=== PATIENT | female | born 1980 | race Caucasian/White ===

== ENCOUNTER 2017-04-20 09:11 | Emergency (ER) | payer BC ==
[2017-04-20 11:09] VITALS: BP 115/50
--- NOTE | 2017-04-20 11:23 | UC ---
Back Pain HPI - HPI Summary HPI Summary: lower back pain x 3 days pulled her lower back as she was doing laundry pain is achy , no radiation of the pain , no lower ext weakness, no n/v, no dysuria - History of Current Complaint Chief Complaint: UCBackPain Stated Complaint: BACK PAIN Time Seen by Provider: 04/20/17 11:14 Hx Obtained From: Patient Hx Last Menstrual Period: 04/19/17 ?: No Onset/Duration: Sudden Onset, Lasting Days - 3, Still Present Timing: Constant Severity Initially: Moderate Severity Currently: Moderate Pain Intensity: 5 Back Pain: Is Discrete @ - lower back Character: Spasmodic Aggravating Factor(s): Movement, Lifting, Bending, Walking, Cough, Nothing Alleviating Factor(s): Rest Associated Signs And Symptoms: Negative: Swelling, Redness, Bruising, Fever, Weakness, Numbness, Tingling, Abdominal Pain, Flank Pain, Bladder Incontinence, Bowel Incontinence, Weight Loss, Pain with Weight Bearing - Allergies/Home Medications Allergies/Adverse Reactions: Allergies Allergy/AdvReac Type Severity Reaction Status Date / Time No Known Allergies Allergy Verified 04/20/17 11:09 PMH/Surg Hx/FS Hx/Imm Hx Previously Healthy: Yes - Surgical History Surgical History: None - Family History Known Family History: Positive: Unknown Negative: Diabetes - Social History Alcohol Use: Occasionally Substance Use Type: None Smoking Status (MU): Former Smoker When Did the Patient Quit Smoking/Using Tobacco: 6 years ago Review of Systems Constitutional: Negative Skin: Negative Eyes: Negative ENT: Negative Respiratory: Negative Cardiovascular: Negative Is Patient Immunocompromised?: No All Other Systems Reviewed And Are Negative: Yes Physical Exam Triage Information Reviewed: Yes Appearance: Well-Appearing, No Pain Distress, Well-Nourished Vital Signs: Initial Vital Signs Temp 98.5 F 04/20/17 11:05 Pulse 86 04/20/17 11:05 Resp 18 04/20/17 11:05 BP 115/50 04/20/17 11:05 Pulse Ox 100 04/20/17 11:05 Vital Signs Reviewed: Yes Eye Exam: Normal Eyes: Positive: Conjunctiva Clear ENT: Positive: Normal ENT inspection, Hearing grossly normal, Pharynx normal Neck: Positive: Supple, Nontender, No Lymphadenopathy Respiratory: Positive: Chest non-tender, Lungs clear, Normal breath sounds, No respiratory distress Cardiovascular: Positive: RRR, No Murmur, Pulses Normal Abdominal Exam: Normal Abdomen Description: Positive: Nontender, Soft Bowel Sounds: Positive: Present Musculoskeletal: Positive: Other: - lower back : no swelling, no erythema, no tenderness, pain with flexion and extension Back Pain Course/Dx - Differential Dx/Diagnosis Provider Diagnoses: lower back strain Discharge - Discharge Plan Condition: Stable Disposition: HOME Prescriptions: Cyclobenzaprine TAB* [Flexeril 10 MG TAB*] 10 mg PO BID PRN #20 tab PRN Reason: Pain Naproxen [Naproxen 500 mg] 500 mg PO BID #20 tablet Patient Education Materials: Low Back Strain (ED) Forms: *Work Release Referrals: No Primary Care Phys,NOPCP [Primary Care Provider] - If Needed
== END 2017-04-20 11:26 | disposition home or self-care (01) ==
LOC: UCCORT 09:11
DX: S39.012A Strain of muscle, fascia and tendon of lower back, initial encounter (principal); X50.9XXA Other and unspecified overexertion or strenuous movements or postures, initial encounter; Y93.E2 Activity, laundry; Y92.008 Other place in unspecified non-institutional (private) residence as the place of occurrence of the external cause; Z87.891 Personal history of nicotine dependence
CPT/HCPCS: 99212; G0463

== ENCOUNTER 2017-08-21 15:20 | Emergency (ER) | payer BC, MEDICAID ==
[2017-08-21 16:07] VITALS: BP 114/74
--- NOTE | 2017-08-21 16:45 | UC ---
Ear Complaint HPI - HPI Summary HPI Summary: 37 y/o female presents to the urgent care c/o B/L earwax buildup w/ decrease hearing since Wednesday08/18/2017. LF ear is worse johanna RT. Pt denies ear pain, dizziness, FRIED, fever, SOB, chest pain, abdominal pain, N/V/D - History of Current Complaint Chief Complaint: UCEar Stated Complaint: EAR WAX BUILD-UP Time Seen by Provider: 08/21/17 16:39 Hx Obtained From: Patient Hx Last Menstrual Period: [id number] Onset/Duration: Gradual Onset, Lasting Days - 4 days, Still Present Severity Initially: Moderate Severity Currently: Moderate Pain Intensity: 0 Pain Scale Used: 0-10 Numeric Aggravating Factors: Nothing Alleviating Factors: Nothing Associated Signs/Symptoms: Positive: Hearing Loss - Allergies/Home Medications Allergies/Adverse Reactions: Allergies Allergy/AdvReac Type Severity Reaction Status Date / Time No Known Allergies Allergy Verified 08/21/17 16:07 PMH/Surg Hx/FS Hx/Imm Hx Previously Healthy: Yes - Pt denies PMHX - Surgical History Surgical History: None - Family History Known Family History: Positive: Diabetes - Social History Occupation: Employed Full-time Lives: With Family Alcohol Use: Occasionally Substance Use Type: None Smoking Status (MU): Former Smoker When Did the Patient Quit Smoking/Using Tobacco: 6 years ago Review of Systems Constitutional: Negative Skin: Negative Eyes: Negative ENT: Ear Ache - B/L earwax build up w/ pressure, Other - decrease hearing Respiratory: Negative Cardiovascular: Negative Gastrointestinal: Negative Genitourinary: Negative Motor: Negative Neurovascular: Negative Musculoskeletal: Negative Neurological: Negative Psychological: Negative Is Patient Immunocompromised?: No All Other Systems Reviewed And Are Negative: Yes Physical Exam - Summary Physical Exam Summary: Vital signs: reviewed General: well developed, well nourished female sitting in the examining table w/ o any apparent distress Skin: Cutter, warm and dry, no evidence of atopic dermatitis, psoriasis, seborrhea. HEENT: -Head: atraumatic, non tender; no scalp dermatitis. -Eyes: sclera and conjunctiva clear, PERRLA, EOMI -Ears: no pre- or postauricular lymphadenopathy or erythema; B/L ear canl impacted w/ cerumen, unable to visualize TM's. -Nose/Face: erythematous and edematous nasal mucosa with clear rhinorrhea, no frontal or maxillary sinus tender to palpation. -Mouth/Throat: Mucous membrane moist, posterior pharynx clear, no erythema or exudates. Neck: supple, FROM, nontender, no lymphadenopathy, no meningismus. Chest: Clear to auscultation, normal breath sounds Abd: soft, Bowel sounds active, Nontender. Back: no spinal or CVAT Neuro: A&O x4, GCS 15, no focal neuro deficits, normal behavior for age. Triage Information Reviewed: Yes Vital Signs: Initial Vital Signs Temp 98.8 F 08/21/17 16:03 Pulse 82 08/21/17 16:03 Resp 16 08/21/17 16:03 BP 114/74 08/21/17 16:03 Pulse Ox 100 08/21/17 16:03 Ear Complaint Course/Dx - Course Course Of Treatment: 37 y/o female presents to the urgent care c/o B/L earwax buildup w/ decrease hearing since Wednesday08/18/2017. LF ear is worse johanna RT. Pt denies ear pain, dizziness, FRIED, fever, SOB, chest pain, abdominal pain, N/V/ D. Hx obtained. Pt w/ B/L ear impaction on examination. B/L ear irrigation ordered. Irrigation performed by Nurse. Pt tolerated well procedure w/o any adverse effect. Both exteranl ear canals completely clear, and TM WNL no signs of infection. Pt advised if not improvement of symptoms in 2-3 days to return to the clinic or f/u w/ her PCP for further treatment. Pt understood and agreed w/ plan of care. - Differential Dx/Diagnosis Differential Diagnosis/HQI/PQRI: Cerumen Impaction, Otitis Externa, Otitis Media , Perforated TM Provider Diagnoses: 1- B/L ear cerumen impaction Discharge - Sign-Out/Discharge Documenting (check all that apply): Discharge/Admit/Transfer - D/c home - Discharge Plan Condition: Stable Disposition: HOME Patient Education Materials: Cerumen Impaction (ED) Referrals: Meghann Padron MD [Primary Care Provider] - 3 Days Additional Instructions: 1- B/L ear canal completely clear. 2-If you develop ear pain or fever please f/u w/ PCP or return to the urgent care for further evaluation and treatment. - Billing Disposition and Condition Condition: STABLE Disposition: Home
== END 2017-08-21 17:24 | disposition home or self-care (01) ==
LOC: UCEAST 15:20
DX: H61.23 Impacted cerumen, bilateral (principal); Z87.891 Personal history of nicotine dependence; Z83.3 Family history of diabetes mellitus
CPT/HCPCS: 99213; G0463

== ENCOUNTER 2017-09-15 12:15 | Emergency (ER) | payer MEDICAID ==
[2017-09-15 12:33] VITALS: BP 118/61
[2017-09-15] MEDS ORDERED: Acetaminophen TAB* 325 MG PO ONE (12:36)
--- NOTE | 2017-09-15 12:44 | UC ---
Throat Pain/Nasal Frank HPI - HPI Summary HPI Summary: Pt c/o sudden onset fever, chills, body aches, ST sinus tenderness X 1 day. - History of Current Complaint Chief Complaint: UCGeneralIllness Stated Complaint: ST/WEAKNESS/FRIED/FEVER Hx Obtained From: Patient Hx Last Menstrual Period: 09/13/17 ?: No Onset/Duration: Sudden Onset, Still Present, Worse Since - onset Severity: Moderate Pain Intensity: 7 Cough: None Associated Signs & Symptoms: Positive: Dysphagia, Sinus Discomfort, Fever - Epiglottits Risk Factors Epiglottis Risk Factors: Sudden Onset - Allergies/Home Medications Allergies/Adverse Reactions: Allergies Allergy/AdvReac Type Severity Reaction Status Date / Time No Known Allergies Allergy Verified 09/15/17 12:28 Home Medications: Home Medications Acetaminophen [Acetaminophen Extra Strength] 1,000 mg PO Q6H PRN 09/15/17 [ History Confirmed 09/15/17] Ibuprofen TAB* [Advil TAB*] 600 mg PO Q6H PRN 09/15/17 [History Confirmed ] PMH/Surg Hx/FS Hx/Imm Hx Previously Healthy: Yes - Surgical History Surgical History: None - Family History Known Family History: Positive: Unknown, Diabetes - Social History Occupation: Employed Full-time Lives: With Family Alcohol Use: Rare Substance Use Type: None Smoking Status (MU): Former Smoker Have You Smoked in the Last Year: No When Did the Patient Quit Smoking/Using Tobacco: 6 years ago Review of Systems Constitutional: Fever, Chills, Fatigue Skin: Negative Eyes: Negative ENT: Sore Throat, Sinus Congestion, Sinus Pain/Tenderness Respiratory: Negative Cardiovascular: Negative Gastrointestinal: Nausea Genitourinary: Negative Motor: Negative Neurovascular: Negative Musculoskeletal: Myalgia Neurological: Headache Psychological: Negative Is Patient Immunocompromised?: No All Other Systems Reviewed And Are Negative: Yes Physical Exam Triage Information Reviewed: Yes Appearance: Ill-Appearing Vital Signs: Initial Vital Signs Temp 102.4 F 09/15/17 12:26 Pulse 120 09/15/17 12:26 Resp 18 09/15/17 12:26 BP 118/61 09/15/17 12:26 Pulse Ox 98 09/15/17 12:26 Vital Signs Reviewed: Yes Eye Exam: Normal ENT: Positive: Nasal congestion, Tonsillar swelling, Tonsillar exudate, Sinus tenderness Dental Exam: Normal Neck exam: Normal Respiratory Exam: Normal Cardiovascular Exam: Normal Musculoskeletal Exam: Normal Neurological Exam: Normal Psychological Exam: Normal Skin Exam: Normal Diagnostics - Laboratory Diagnostic Studies Completed/Ordered: elin rapid strep: positive Throat Pain/Nasal Course/Dx - Differential Dx/Diagnosis Differential Diagnosis/HQI/PQRI: Tonsillitis Provider Diagnoses: strep throat Discharge - Sign-Out/Discharge Documenting (check all that apply): Patient Departure - Discharge Plan Condition: Stable Disposition: HOME Prescriptions: Penicillin VK 500 MG TAB(NF) [Penicillin VK 500 mg Tab] 500 mg PO Q8H #30 tab Patient Education Materials: Strep Throat (DC) Forms: *Work Release Referrals: Meghann Padron MD [Primary Care Provider] - - Billing Disposition and Condition Condition: STABLE Disposition: Home
== END 2017-09-15 12:56 | disposition home or self-care (01) ==
LOC: UCCORT 12:15
DX: J02.0 Streptococcal pharyngitis (principal); Z87.891 Personal history of nicotine dependence
CPT/HCPCS: 87651; 99212; A9270-GY; G0463

== ENCOUNTER 2018-03-13 12:13 | Emergency (ER) | payer MEDICAID ==
[2018-03-13 12:26] VITALS: BP 123/75
--- NOTE | 2018-03-13 14:23 | UC ---
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[facility]-- - History of Current Complaint Chief Complaint: UCRash Time Seen by Provider: 03/13/18 14:01 Stated Complaint: SKIN COMPLAINT Hx Obtained From: Patient Hx Last Menstrual Period: 09/13/17 ?: Yes Onset/Duration: Sudden Onset, Lasting Days, Still Present Timing: Constant Pain Intensity: 0 Location: Discrete - right fore arm Character: Pruritus, Redness Aggravating Factor(s): Nothing Alleviating Factor(s): Nothing Associated Signs & Symptoms: Positive: Rash - Allergy/Home Medications Allergies/Adverse Reactions: Allergies Allergy/AdvReac Type Severity Reaction Status Date / Time No Known Allergies Allergy Verified 03/13/18 12:26 Home Medications: Home Medications NK [No Home Medications Reported] 03/13/18 [History Confirmed 03/13/18] PMH/Surg Hx/FS Hx/Imm Hx Previously Healthy: Yes - Surgical History Surgical History: None - Family History Known Family History: Positive: Unknown, Diabetes - Social History Occupation: Employed Full-time Lives: With Family Alcohol Use: None Substance Use Type: None Smoking Status (MU): Former Smoker Have You Smoked in the Last Year: No When Did the Patient Quit Smoking/Using Tobacco: 6 years ago Review of Systems All Other Systems Reviewed And Are Negative: Yes Constitutional: Positive: Negative Skin: Positive: Other - contact dermititis right forearm Eyes: Positive: Negative ENT: Positive: Negative Respiratory: Positive: Negative Cardiovascular: Positive: Negative Gastrointestinal: Positive: Negative Genitourinary: Positive: Negative Motor: Positive: Negative Neurovascular: Positive: Negative Musculoskeletal: Positive: Negative Neurological: Positive: Negative Psychological: Positive: Negative Is Patient Immunocompromised?: No Physical Exam Triage Information Reviewed: Yes Appearance: Well-Appearing, No Pain Distress, Well-Nourished Vital Signs: Initial Vital Signs Temp 98.5 F 03/13/18 12:22 Pulse 96 03/13/18 12:22 Resp 18 03/13/18 12:22 BP 123/75 03/13/18 12:22 Pulse Ox 100 03/13/18 12:22 Vital Signs Reviewed: Yes Eye Exam: Normal Eyes: Positive: Conjunctiva Clear ENT Exam: Normal ENT: Positive: Normal ENT inspection, Hearing grossly normal. Negative: Trismus , Muffled voice, Hoarse voice Dental Exam: Normal Neck exam: Normal Neck: Positive: Supple, Nontender Respiratory Exam: Normal Respiratory: Positive: Chest non-tender, No respiratory distress, No accessory muscle use Cardiovascular Exam: Normal Cardiovascular: Positive: RRR, Pulses Normal, Brisk Capillary Refill Musculoskeletal Exam: Normal Musculoskeletal: Positive: Strength Intact, ROM Intact, No Edema Neurological Exam: Normal Neurological: Positive: Alert, Muscle Tone Normal Psychological Exam: Normal Skin Exam: Other Skin: Positive: Other - dermititis right forearm- Course/Dx - Course Course Of Treatment: benadryl, cool compress (dry) keep skin dry use vaseline protectant---(hydrocortisone ic "C" in pregnacy-advised patient to discuss this treatment with pcp) - Diagnoses Provider Diagnosis: Acute contact dermatitis, Discharge - Sign-Out/Discharge Documenting (check all that apply): Patient Departure All imaging exams completed and their final reports reviewed: No Studies - Discharge Plan Condition: Stable Disposition: HOME Patient Education Materials: Diphenhydramine (By mouth), Contact Dermatitis (ED ), Cold Compress or Soak (ED) Referrals: Meghann Padron MD [Primary Care Provider] - 1 Week - Billing Disposition and Condition Condition: STABLE Disposition: Home
== END 2018-03-13 14:25 | disposition home or self-care (01) ==
LOC: UCEAST 12:13
DX: O99.719 Diseases of the skin and subcutaneous tissue complicating pregnancy, unspecified trimester (principal); L25.9 Unspecified contact dermatitis, unspecified cause; Z87.891 Personal history of nicotine dependence
CPT/HCPCS: 99211; G0463

== ENCOUNTER 2018-06-22 13:40 | Emergency (ER) | payer MEDICAID, OTHER ==
[2018-06-22 13:58] VITALS: BP 124/59
--- NOTE | 2018-06-22 14:10 | UC ---
General HPI - HPI Summary HPI Summary: Here with and daughter. Woke up this morning and could not hear out of either ears. Gets clogged ears all the time. States she uses qtips because she feels like she gets so much wax in there. No fever. No URI symptoms. Otherwise well. Meds: reviewed. - History of Current Complaint Chief Complaint: UCEar Stated Complaint: EAR PAIN Time Seen by Provider: 06/22/18 13:47 Hx Last Menstrual Period: 11/11/17 Pain Intensity: 0 - Allergy/Home Medications Allergies/Adverse Reactions: Allergies Allergy/AdvReac Type Severity Reaction Status Date / Time No Known Allergies Allergy Verified 03/13/18 12:26 PMH/Surg Hx/FS Hx/Imm Hx Previously Healthy: Yes - Surgical History Surgical History: None - Family History Known Family History: Positive: Unknown, Diabetes - Social History Alcohol Use: None Substance Use Type: None Smoking Status (MU): Former Smoker Have You Smoked in the Last Year: No When Did the Patient Quit Smoking/Using Tobacco: 6 years ago Review of Systems All Other Systems Reviewed And Are Negative: Yes ENT: Positive: Other - hearing loss Physical Exam Triage Information Reviewed: Yes Appearance: Well-Appearing Vital Signs: Initial Vital Signs Temp 98.8 F 06/22/18 13:49 Pulse 73 06/22/18 13:49 Resp 18 06/22/18 13:49 BP 124/59 06/22/18 13:49 Pulse Ox 99 06/22/18 13:49 Vital Signs Reviewed: Yes ENT: Positive: Other - b/l wax impaction -soft Neck: Positive: Supple Respiratory: Positive: Chest non-tender, Normal breath sounds Cardiovascular: Positive: RRR, No Murmur Course/Dx - Course Course Of Treatment: This is a 38 yr old with b/l wax impaction Unable to be removed with curette as it is too distal Ear lavage b/l - with success. Now can hear. No signs of infection Canal and TM ; Normal Plan Debrox kit to use as needed Discontinue using qtips Return to urgent care or your PCP if you develop any pain or you develop hearing loss again - Diagnoses Provider Diagnosis: Impacted ear wax Discharge - Sign-Out/Discharge Documenting (check all that apply): Patient Departure All imaging exams completed and their final reports reviewed: No Studies - Discharge Plan Condition: Good Disposition: HOME Prescriptions: Carbamide Peroxide 6.5% OTIC* [DEBROX 6.5% Otic*] 5 drop BOTH EARS BID #1 bottle Patient Education Materials: Cerumen Impaction (ED) Referrals: Meghann Padron MD [Primary Care Provider] - Additional Instructions: Debrox kit to use as needed Discontinue using qtips Return to urgent care or your PCP if you develop any pain or you develop hearing loss again - Billing Disposition and Condition Condition: GOOD Disposition: Home
== END 2018-06-22 14:35 | disposition home or self-care (01) ==
LOC: UCEAST 13:40
DX: H61.23 Impacted cerumen, bilateral (principal); F17.210 Nicotine dependence, cigarettes, uncomplicated
CPT/HCPCS: 99213; G0463

== ENCOUNTER 2018-11-08 15:47 | Emergency (ER) | payer OTHER ==
[2018-11-08 16:03] VITALS: BP 130/70
--- NOTE | 2018-11-08 16:10 | UC ---
General HPI - HPI Summary HPI Summary: R ear plugged today. hx same from wax buildup. no uri, fever or discharge from the ear. - History of Current Complaint Chief Complaint: UCEar Stated Complaint: RT EAR COMPLAINT Time Seen by Provider: 11/08/18 15:58 Hx Obtained From: Patient Hx Last Menstrual Period: 11/11/17 Pain Intensity: 4 Associated Signs & Symptoms: Negative: Headache - Allergy/Home Medications Allergies/Adverse Reactions: Allergies Allergy/AdvReac Type Severity Reaction Status Date / Time No Known Allergies Allergy Verified 11/08/18 16:03 PMH/Surg Hx/FS Hx/Imm Hx Previously Healthy: Yes - Surgical History Surgical History: None - Family History Known Family History: Positive: Unknown, Diabetes - Social History Lives: With Family Alcohol Use: None Substance Use Type: None Smoking Status (MU): Former Smoker Have You Smoked in the Last Year: No When Did the Patient Quit Smoking/Using Tobacco: 6 years ago Review of Systems All Other Systems Reviewed And Are Negative: No Constitutional: Negative: Fever, Chills Skin: Negative: Rash Eyes: Negative: Drainage, Eye Redness ENT: Negative: Sore Throat, Sinus Congestion Neurological: Negative: Headache Physical Exam Triage Information Reviewed: Yes Appearance: Well-Appearing Vital Signs: Initial Vital Signs Temp 98.7 F 11/08/18 15:59 Pulse 78 11/08/18 15:59 Resp 16 11/08/18 15:59 BP 130/70 11/08/18 15:59 Pulse Ox 100 11/08/18 15:59 Vital Signs Reviewed: Yes Eyes: Positive: Conjunctiva Clear ENT: Positive: Pharynx normal, TMs normal - L. R occluded by cerumen., Other - no mastoid tenderness or auricular adenoapthy.. Negative: Nasal congestion, Nasal drainage Neck: Positive: Supple, Nontender, No Lymphadenopathy Neurological: Positive: Alert Psychological: Positive: Normal Response To Family, Age Appropriate Behavior Skin Exam: Normal Re-Evaluation - Re-Evaluation First Eval Re-Evaluation Time: 16:18 Change: Improved - most of cerumen cleared. tiny amount. tm jovi. canal is red. no bleeding. pt declined additional flushing and pain medication. Course/Dx - Diagnoses Provider Diagnosis: Impacted cerumen of right ear, Otitis externa Discharge ED - Sign-Out/Discharge Documenting (check all that apply): Patient Departure All imaging exams completed and their final reports reviewed: No Studies - Discharge Plan Condition: Stable Disposition: HOME Prescriptions: Ciproflox/Dexameth OTIC.SUSP* [Ciprodex OTIC.SUSP*] 4 drop .SEE ORDER BID 7 Days #1 btl Patient Education Materials: Cerumen Impaction (ED), Otitis Externa (ED) Referrals: Babita Bennett MD [Primary Care Provider] - 7 Days - Billing Disposition and Condition Condition: STABLE Disposition: Home
== END 2018-11-08 16:40 | disposition home or self-care (01) ==
LOC: UCCORT 15:47
DX: H61.21 Impacted cerumen, right ear (principal); H60.91 Unspecified otitis externa, right ear; Z87.891 Personal history of nicotine dependence
CPT/HCPCS: 99212; G0463

== ENCOUNTER 2019-04-23 18:16 | Emergency (ER) | payer BC, OTHER ==
[2019-04-23 18:33] VITALS: BP 123/60
[2019-04-23] MEDS ORDERED: Amoxicillin PO (*) 500 MG CAP PO ONE ×2 (19:45→19:46)
--- NOTE | 2019-04-23 20:02 | UC ---
Ear Complaint HPI - HPI Summary HPI Summary: 1 MONTH OF BILATERAL EAR PAIN, FULLNESS AND DECREASED HEARING. STATES SHE HAS A HISTORY OF RECURRENT CERUMEN IMPACTION. - History of Current Complaint Chief Complaint: UCEar Stated Complaint: EAR PAIN Time Seen by Provider: 04/23/19 18:44 Hx Obtained From: Patient Hx Last Menstrual Period: Depo Onset/Duration: Gradual Onset, Lasting Weeks, Still Present Severity Initially: Moderate Severity Currently: Moderate Pain Intensity: 7 Pain Scale Used: 0-10 Numeric Aggravating Factors: Nothing Alleviating Factors: Nothing Associated Signs/Symptoms: Positive: Hearing Loss, Foreign Body Sensation. Negative: URI Symptoms - Allergies/Home Medications Allergies/Adverse Reactions: Allergies Allergy/AdvReac Type Severity Reaction Status Date / Time No Known Allergies Allergy Verified 04/23/19 18:34 PMH/Surg Hx/FS Hx/Imm Hx Previously Healthy: Yes - Surgical History Surgical History: None - Family History Known Family History: Positive: Unknown, Diabetes, Non-Contributory - Social History Alcohol Use: Occasionally Substance Use Type: None Smoking Status (MU): Former Smoker Have You Smoked in the Last Year: No When Did the Patient Quit Smoking/Using Tobacco: 6 years ago Review of Systems All Other Systems Reviewed And Are Negative: Yes Constitutional: Positive: Negative ENT: Positive: Ear Ache Respiratory: Positive: Negative Cardiovascular: Positive: Negative Gastrointestinal: Positive: Negative Physical Exam Triage Information Reviewed: Yes Appearance: Well-Appearing, No Pain Distress, Well-Nourished Vital Signs: Initial Vital Signs Temp 99.0 F 04/23/19 18:31 Pulse 92 04/23/19 18:31 Resp 12 04/23/19 18:31 BP 123/60 04/23/19 18:31 Pulse Ox 99 04/23/19 18:31 Vital Signs Reviewed: Yes Eyes: Positive: Conjunctiva Clear ENT: Positive: Hearing grossly normal, Pharynx normal, Other - BILATERAL CERUMEN IMPACTION. AFTER IRRIGATION LEFT TM SEEN TO BE SLIGHTLY ERYTHEMATOUS. BOTH EAR CANALS HAVE AN ANATOMIC NARROWING Neck: Positive: Supple, Nontender, No Lymphadenopathy Respiratory Exam: Normal Cardiovascular Exam: Normal Abdomen Description: Positive: Soft Musculoskeletal: Positive: No Edema Neurological: Positive: Alert Psychological: Positive: Age Appropriate Behavior Skin: Negative: Rashes Ear Complaint Course/Dx - Course Course Of Treatment: PATIENT HAS HAD ABOUT A MONTH OF WORSENING EAR PAIN AND DECREASED HEARING. STATES SHE GETS FREQUENT CERUMEN IMPACTION AND HAS TO BE IRRIGATED FROM TIME TO TIME. ON EXAM BILATERAL EAR CANALS WERE IMPACTED WITH CERUMEN WHICH WAS SUCCESSFULLY IRRIGATED BY RN. EAR CANALS WERE INSPECTED AND SEEMED TO HAVE AN ANATOMIC NARROWING WHICH MAY EXPLAIN WHY SHE RETAINS CERUMEN. LEFT EARDRUM DID APPEAR ERYTHEMATOUS SO COVERED WITH ANTIBIOTICS. ADVISED PATIENT TO FOLLOW UP WITH ENT IF HER SYMPTOMS DO NOT IMPROVE. - Differential Dx/Diagnosis Provider Diagnosis: Bilateral impacted cerumen, Left otitis media Discharge ED - Sign-Out/Discharge Documenting (check all that apply): Patient Departure All imaging exams completed and their final reports reviewed: No Studies - Discharge Plan Condition: Stable Disposition: HOME Prescriptions: Amoxicillin PO (*) [Amoxicillin 500 MG CAP*] 1,000 mg PO Q12H #26 cap Patient Education Materials: Cerumen Impaction (ED), Ear Infection (ED) Forms: *Work Release Referrals: [facility] [Provider Group] - If Needed Babita Bennett MD [Primary Care Provider] - If Needed Additional Instructions: THE WAX WAS SUCCESSFULLY IRRIGATED OUT OF BOTH YOUR EAR CANALS TODAY. YOU HAD A SLIGHT REDNESS TO YOUR LEFT EARDRUM SO WILL COVER FOR EAR INFECTION WITH AMOXICILLIN TWICE DAILY FOR A WEEK. IF YOUR SYMPTOMS DO NOT RESOLVE FOLLOW-UP WITH ENT. OTC MEDS NEEDED FOR DISCOMFORT. - Billing Disposition and Condition Condition: STABLE Disposition: Home
== END 2019-04-23 20:06 | disposition home or self-care (01) ==
LOC: UCEAST 18:16
DX: H61.23 Impacted cerumen, bilateral (principal); H66.92 Otitis media, unspecified, left ear; Z87.891 Personal history of nicotine dependence
CPT/HCPCS: 99212; A9270-GY; G0463